=== PATIENT | female | born 1980 | race Caucasian/White ===

== ENCOUNTER 2017-08-26 09:08 | Outpatient (CLI) | payer OTHER | END 2017-08-26 10:24 | disposition home or self-care (01) | LOC: LAB 09:08 | DX: I10 Essential (primary) hypertension (principal); D68.8 Other specified coagulation defects; D64.89 Other specified anemias; R79.1 Abnormal coagulation profile ==

== ENCOUNTER 2017-08-26 09:12 | Outpatient (CLI) | payer OTHER | END 2017-08-26 10:19 | disposition home or self-care (01) | LOC: RAD 09:12 | DX: R05 Cough (principal) ==